=== PATIENT | male | born 1970 | race African-American/Black ===

== ENCOUNTER 2016-08-09 19:52 | Emergency (ER) | payer OTHER ==
[~2016-08-09] VITALS: Ht 185.4 cm; Wt 82.0 kg
[~2016-08-09 19:52] MED LIST: FIORIC PO; LORTA5 PO; TRAM50 PO; ZOFR4TAB3 SL
[2016-08-09 19:55] VITALS: BP 159/89; PULSE 80; RESP 16; TEMP 99.1; O2SAT 99
[2016-08-09] MEDS ORDERED: SODIUM CHLOR 0.9% 1000 ML INJ 1,000 ML IV ONE (21:42)
[2016-08-09] MEDS ORDERED: METOCLOPRAMIDE HCL 10 MG/2 ML VIAL IVP ONE (21:45)
[2016-08-09] MEDS ORDERED: diphenhydrAMINE HCL 50 MG/ML VIAL IVP ONE (21:45)
[2016-08-09] MEDS ORDERED: KETOROLAC TROMETHAMINE 30 MG/ML (IVP) VIAL IVP ONE (21:45)
[2016-08-09] MEDS ORDERED: SODIUM CHLORIDE 0.9% FLUSH 5 ML FLUSH IVF PRN (21:45)
--- NOTE | 2016-08-09 21:46 | PD ---
HPI Chief Complaint: Headache Time Seen by Provider: 21:30 Travel History International Travel<30 days: No Contact w/Intl Traveler<30days: No Traveled to known affect area: No History of Present Illness HPI This is a 45-year-old male who presents for evaluation of headache. Symptoms started 3 days ago. He describes it as a frontal headache which is throbbing in nature, constant, gradually worsening over the past 3 days. Occasional nausea. Denies vomiting, weakness, confusion, head trauma, chest pain, shortness of breath. He has had a cough and congestion over the past week. He reports that he has had similar headaches many times over the past several years. He reports that he was diagnosed with migraines many years ago however he does not have a primary care physician. He was concerned because over the past few months he has been recording his blood pressure and the systolic reading has been anywhere from 138-180. He has not had follow-up with the primary care physician and discuss blood pressure control. He has been seen here several times in the past for cephalgia. He used some Aleve earlier today with persistence of his headache. He has no other complaints at this time. PFSH Past Medical History Arthritis: No Asthma: No Anxiety: No Depression: No Heart Rhythm Problems: Yes (MURMUR SINCE TEEN YEARS) Cancer: No Cardiovascular Problems: Yes (HTN -NO MEDS) High Cholesterol: No Chemotherapy: No Chest Pain: Yes Congestive Heart Failure: No COPD: No Cerebrovascular Accident: No Diabetes: No Diminished Hearing: No Endocrine: No GERD: Yes Genitourinary: No Headaches: Yes Hepatitis: No Hiatal Hernia: No Hypertension: Yes Immune Disorder: No Kidney Stones: No Musculoskeletal: Yes (CHRONIC BACK PROBLEM) Neurologic: No Psychiatric: No Reproductive: No Respiratory: No Migraines: Yes Myocardial Infarction: No Radiation Therapy: No Renal Failure: No Seizures: No Sleep Apnea: Yes Thyroid Disease: No Ulcer: Yes Past Surgical History Abdominal Surgery: No AICD: No Appendectomy: No Arteriovenous Shunt: No Cardiac Surgery: No Cholecystectomy: No Ear Surgery: No Endocrine Surgery: No Eye Surgery: No Gynecologic Surgery: No Insulin Pump: No Joint Replacement: No Mastectomy: No Oral Surgery: No Pacemaker: No Thoracic Surgery: No Other Surgery: No Social History Alcohol Use: No Tobacco Use: No Substance Use: Yes (Marijuana) Allergies-Medications (Allergen,Severity, Reaction): Coded Allergies: Cipro (Verified Allergy, Mild, Rash, 08/09/16) Reported Meds & Prescriptions Reported Meds & Active Scripts Active No Active Prescriptions or Reported Medications Review of Systems Except as stated in HPI: all other systems reviewed are Neg Physical Exam Narrative GENERAL: This is a well-developed well-nourished male in no acute distress. SKIN: Warm and dry. HEAD: Atraumatic. Normocephalic. EYES: Pupils equal and round reactive to light extraocular muscles are intact. No scleral icterus. No injection or drainage. ENT: No nasal bleeding or discharge. Mucous membranes pink and moist. NECK: Trachea midline. No JVD. CARDIOVASCULAR: Regular rate and rhythm. No murmur appreciated. RESPIRATORY: No accessory muscle use. Clear to auscultation. Breath sounds equal bilaterally. GASTROINTESTINAL: Abdomen soft, non-tender, nondistended. MUSCULOSKELETAL: No obvious deformities. NEUROLOGICAL: Awake and alert. No obvious cranial nerve deficits. Motor grossly within normal limits. Normal speech. Normal gait. PSYCHIATRIC: Appropriate mood and affect; insight and judgment normal. Data Data Last Documented VS Vital Signs Date Time Temp Pulse Resp B/P Pulse Ox O2 Delivery O2 Flow Rate FiO2 08/09/16 21:48 80 16 99 Room Air 08/09/16 19:55 99.1 159/89 Orders Iv Access Insert/Monitor (08/09/16 21:42) Sodium Chloride 0.9% Flush (Ns Flush) (08/09/16 21:45) Ketorolac Inj (Toradol Inj) (08/09/16 21:45) Diphenhydramine Inj (Benadryl Inj) (08/09/16 21:45) Metoclopramide Inj (Reglan Inj) (08/09/16 21:45) Sodium Chlor 0.9% 1000 Ml Inj (Ns 1000 M (08/09/16 21:42) MDM Medical Decision Making Medical Screen Exam Complete: Yes Emergency Medical Condition: Yes Medical Record Reviewed: Yes Differential Diagnosis Tension headache, migraine without aura, cluster headache, pseudotumor cerebri, subarachnoid hemorrhage, mass Narrative Course 45-year-old male presents with 3 days of gradually worsening frontal headache. He has had similar headaches multiple times over the years. He notes that his blood pressure readings have been elevated over the past few months when checking at [facility] with a systolic reading anywhere from 138-180. He is requesting that he be started on a antihypertensive medication. He was strongly encouraged to establish care with a primary care physician for follow- up purposes and for routine screening examination and he is agreeable with this plan. I suspect that his current headache is a headache versus migraine without aura. Plan is to treat him symptomatically and discharged with low- dose lisinopril, outpatient follow-up. 2253: Upon recheck the headache is almost completely resolved. He is stable for discharge. Diagnosis Primary Impression: Headache Qualified Code: R51 - Acute nonintractable headache, unspecified headache type Additional Instructions: Medication as prescribed. Monitor blood pressure a few times a week and keep a journal of these readings. Follow up close with primary care physician for routine medical management and blood pressure management. Return for any emergent medical conditions. Med/Other Pt SpecificInfo: Prescription(s) given Scripts Lisinopril 10 Mg Tab10 Mg PO DAILY #30 TAB Ref 0 Prov:Inge Lópezlatrice CHENEY 08/09/16 Disposition: 01 DISCHARGE HOME Condition: Stable Cruz Sr Aug 09, 2016 21:46
[2016-08-09] MEDS ORDERED: LISI10TA3 PO (22:53)
== END 2016-08-09 23:47 | disposition home or self-care (01) ==
LOC: NEPB 19:52
DX: R51 Headache (principal); I10 Essential (primary) hypertension; G43.909 Migraine, unspecified, not intractable, without status migrainosus; F12.90 Cannabis use, unspecified, uncomplicated
CPT/HCPCS: 96374; 96375; 99283; J1200; J1885; J2765; J7030